=== PATIENT | female | born 1975 | race Asian ===

== ENCOUNTER 2016-10-20 12:57 | Outpatient (CLI) | payer BC | END 2016-10-20 19:24 | disposition home or self-care (01) | LOC: MAMMO 12:57 | DX: Z12.31 Encounter for screening mammogram for malignant neoplasm of breast (principal) | CPT/HCPCS: G0202-TC ==

== ENCOUNTER 2018-11-12 21:22 | Emergency (ER) | payer OTHER ==
[~2018-11-12] VITALS: Ht 180.3 cm; Wt 104.3 kg
[2018-11-12 21:30] VITALS: BP 145/91; TEMP 100.3
== END 2018-11-12 23:24 | disposition home or self-care (01) ==
LOC: ED 21:22
DX: J11.1 Influenza due to unidentified influenza virus with other respiratory manifestations (principal)
CPT/HCPCS: 87502; 87651; 99282